=== PATIENT | female | born 1945 | race Caucasian/White ===

== ENCOUNTER → 2019-09-19 15:32 | Outpatient (ROUT) | payer MEDICARE, OTHER, SELFPAY ==
[2019-09-19 15:48] LABS: Add Manual Diff / Slide Review NO; Basophils Absolute Auto 0 /uL (0-100); Eosinophils Absolute Auto 100 /uL (0-450); Eosinophils Percent Auto 1.7 % (2-4); Hemoglobin 12.9 g/dL (12.0-16.0); Lymphocytes Absolute Auto 1200 /uL (1100-4500); Lymphocytes Percent Auto 25.6 % (25-40); Mean Corpuscular HGB Conc 33.1 % (30-36); Mean Corpuscular Hemoglobin 33.1 PG (26-34); Monocytes Absolute Auto 600 /uL (0-900); Monocytes Percent Auto 12.8 % (3-14); Neutrophils Absolute Auto 2800 /uL (1500-7000); Neutrophils Percent Auto 58.9 % (50-75); Platelet Count 287 X10^3/uL (150-400); Red Cell Distribution Width 12.9 % (11.6-14.8); White Blood Cell Count 4.7 X10^3/uL (4.5-11.0)
== END ==
PROVIDERS: Visit Provider Student in an Organized Health Care Education/Training Program
DX: N64.9 Disorder of breast, unspecified (principal)
CPT/HCPCS: 85025

== ENCOUNTER → 2021-03-15 18:52 | Outpatient (ROUT) | payer MEDICARE, OTHER, SELFPAY ==
[2021-03-15 19:44] LABS: TSH w/ Reflex to FT4 2.55 uIU/mL (0.47-4.68)
[2021-03-18 11:54] LABS: Tissue Transglutaminase IgA <2 U/mL (0-3); Tissue Transglutaminase IgG <2 U/mL (0-5)
== END ==
PROVIDERS: Visit Provider Internal Medicine
DX: K90.0 Celiac disease (principal); R10.9 Unspecified abdominal pain
CPT/HCPCS: 83516; 84443

== ENCOUNTER → 2021-03-20 08:08 | Outpatient (CLI) | payer MEDICARE, OTHER, SELFPAY ==
--- NOTE | 2021-03-20 | DI.US.S_ITS ---
PROCEDURE: US ABDOMEN COMPLETE INDICATIONS: ABDOMINAL PAIN TECHNIQUE: Real-time scanning was performed of the abdominal and retroperitoneal organs, with image documentation. COMPARISON: None available. FINDINGS: Liver: Normal size. Increased in echogenicity. Multiple simple appearing liver cysts. Largest measuring 2.9 cm. Gallbladder: Nondilated. No stones or sludge. Normal gallbladder wall thickness. No pericholecystic fluid. Negative sonographic Bates's sign. Biliary ducts: Intrahepatic bile ducts are non-dilated. Extrahepatic bile duct caliber measures 5 mm. Normal is 6-7 mm or less in diameter, or 10 mm or less post-cholecystectomy. Pancreas: Visualized portions of the pancreas are sonographically normal. Increased conspicuity of the pancreatic duct. Spleen: Spleen is normal in size and homogeneous in echotexture. Spleen measures 8.1 cm in length. Kidneys: Kidneys are normal in size and echotexture. Right kidney measures 10.1 cm long; left kidney measures 9.9 cm long. No hydronephrosis. A small echogenic foci in both kidneys. No posterior acoustic shadowing appreciated. No solid masses. Aorta: Visualized aorta is normal in caliber at less than 3 cm. Trace plaque seen. Iliacs: Proximal common iliac arteries are normal in caliber at less than 2.5 cm. IVC: Intrahepatic inferior vena cava is patent. Miscellaneous: No free abdominal fluid. IMPRESSION: 1. Increased hepatic echogenicity most consistent with hepatic steatosis. Other forms of hepatocellular disease could have similar appearance. 2. No acute cholecystitis. No gallstones. 3. No hydronephrosis. Echogenic foci in the kidneys may represent small nonobstructing kidney stones. -If clinically indicated CT KUB could be performed for further evaluation. Dictated by: Humble Velez M.D. on 03/20/2021 at 9:56 Approved by: Humble Velez M.D. on 03/20/2021 at 10:00
== END ==
PROVIDERS: PCP Student in an Organized Health Care Education/Training Program; Referring Provider Internal Medicine; Visit Provider Internal Medicine
DX: R10.9 Unspecified abdominal pain (principal)
CPT/HCPCS: 76700

== ENCOUNTER → 2022-05-13 11:01 | Outpatient (CLI) | payer MEDICARE, OTHER, SELFPAY ==
--- NOTE | 2022-05-13 | DI.RAD.S_ITS ---
PROCEDURE: XR KNEE RT 3V INDICATIONS: Pain in right knee TECHNIQUE: 3 views of the knee were acquired. COMPARISON: None. FINDINGS: Bones: No fractures or dislocations. No suspicious bony lesions. Moderate to severe medial as well as moderate lateral and mild patellofemoral compartment narrowing. Periarticular osteophytes are present. No erosions. Soft tissues: Mild joint effusion. No suspicious soft tissue calcifications. Chondrocalcinosis is present. IMPRESSION: Tricompartmental osteoarthritic change most severe medially. Dictated by: Valencia Jarvis M.D. on 05/13/2022 at 12:40 Approved by: Valencia Jarvis M.D. on 05/13/2022 at 12:41
== END ==
PROVIDERS: PCP Student in an Organized Health Care Education/Training Program; Referring Provider Student in an Organized Health Care Education/Training Program; Visit Provider Student in an Organized Health Care Education/Training Program
DX: M25.561 Pain in right knee (principal)
CPT/HCPCS: 73562

== ENCOUNTER → 2023-08-20 14:59 | Outpatient (CLI) | payer MEDICARE, OTHER, SELFPAY ==
--- NOTE | 2023-08-20 | DI.RAD.S_ITS ---
PROCEDURE: XR CHEST 2V INDICATIONS: cough x 10 days TECHNIQUE: 2 views of the chest were acquired. COMPARISON: None. FINDINGS: Surgical changes and devices: None. Lungs and pleura: Lungs are clear. No pleural effusions or pneumothorax. Mediastinum: Mediastinal contours are normal. Heart size is normal. Bones and chest wall: No suspicious bony abnormalities. Soft tissues appear unremarkable. IMPRESSION: No acute cardiopulmonary abnormality is seen. Approved by: Javier Solo M.D. on 08/20/2023 at 18:23
== END ==
PROVIDERS: PCP Student in an Organized Health Care Education/Training Program; Referring Provider Student in an Organized Health Care Education/Training Program; Visit Provider Student in an Organized Health Care Education/Training Program
DX: R05.9 Cough, unspecified (principal)
CPT/HCPCS: 71046

== ENCOUNTER → 2025-03-03 11:01 | Outpatient (CLI) | payer MEDICARE, OTHER, SELFPAY ==
--- NOTE | 2025-03-03 11:04 | DI.RAD.S_ITS ---
PROCEDURE: XR CHEST 2V INDICATIONS: WHEEZY BRONCHITIS TECHNIQUE: 2 views of the chest were acquired. COMPARISON: [facility], CR, XR CHEST 2V, 08/20/2023, 15:11. FINDINGS: Surgical changes and devices: None. Lungs and pleura: Lungs are clear. No pleural effusions or pneumothorax. Mediastinum: Mediastinal contours are normal. Heart size is normal. Bones and chest wall: No suspicious bony abnormalities. Soft tissues appear unremarkable. IMPRESSION: No acute cardiopulmonary abnormality is seen. Dictated by: Kerwin Burnett M.D. on 03/03/2025 at 13:47 Approved by: eKrwin Burnett M.D. on 03/03/2025 at 13:47
== END ==
PROVIDERS: PCP Nurse Practitioner Family; Referring Provider Family Medicine; Visit Provider Family Medicine
DX: J40 Bronchitis, not specified as acute or chronic (principal)
CPT/HCPCS: 71046